=== PATIENT | male | born 1955 | race Two or more races ===

== ENCOUNTER 2024-04-15 07:29 | Emergency (ER) | payer OTHER, MEDICAID ==
[~2024-04-15] VITALS: Ht 167.6 cm; Wt 84.0 kg
[2024-04-15 08:09] VITALS: PULSE 89; O2SAT 93
[2024-04-15] MEDS: SILVER NITRATE-POTAS NITRA STICK TOP ONE (11:36)
[2024-04-15] MEDS: LIDOCAINE 2% JELLY 11ml (GLYDO) UR ONE (11:37)
[2024-04-15 11:41] VITALS: BP 157/81; PULSE 78; RESP 14; O2SAT 95
== END 2024-04-15 11:55 | disposition home or self-care (01) ==
LOC: EDBD 07:29 → ER 07:29
DX: L76.22 Postprocedural hemorrhage of skin and subcutaneous tissue following other procedure (principal)

== ENCOUNTER 2024-04-15 23:43 | Emergency (ER) | payer OTHER, MEDICAID ==
[~2024-04-15] VITALS: Ht 182.9 cm; Wt 89.0 kg
[2024-04-15 23:50] VITALS: BP 163/82; PULSE 88; RESP 18; O2SAT 98
== END 2024-04-16 01:20 | disposition left against medical advice (07) ==
LOC: ER 23:43
DX: T81.89XA Other complications of procedures, not elsewhere classified, initial encounter (principal); R58 Hemorrhage, not elsewhere classified; Z53.21 Procedure and treatment not carried out due to patient leaving prior to being seen by health care provider

== ENCOUNTER 2025-02-28 11:55 | Emergency (ER) | payer OTHER, MEDICAID ==
[~2025-02-28] VITALS: Ht 182.9 cm; Wt 88.0 kg
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
[2025-02-28 12:49] VITALS: PULSE 97; RESP 18; O2SAT 97
[2025-02-28] MEDS: cloNIDine HCL 0.1 MG TAB PO ONE (12:51)
[2025-02-28 13:29] VITALS: BP 125/70; PULSE 92; RESP 18; TEMP 97.8; O2SAT 97
== END 2025-02-28 13:29 | disposition home or self-care (01) ==
LOC: ER 11:55 → EDBD 11:55 → ER 13:29
DX: I16.0 Hypertensive urgency (principal); E11.9 Type 2 diabetes mellitus without complications; E78.5 Hyperlipidemia, unspecified; I10 Essential (primary) hypertension; Z86.73 Personal history of transient ischemic attack (TIA), and cerebral infarction without residual deficits; V89.2XXA Person injured in unspecified motor-vehicle accident, traffic, initial encounter; Y93.89 Activity, other specified; Y92.410 Unspecified street and highway as the place of occurrence of the external cause; Y99.8 Other external cause status